=== PATIENT | female | born 1995 | race Caucasian/White ===

== ENCOUNTER 2020-03-19 01:57 | Emergency (ER) | payer OTHER ==
[~2020-03-19] VITALS: Ht 165.1 cm; Wt 104.3 kg
[~2020-03-19 01:57] MED LIST: ADVAIR 250-501 EACH IH; ALLEGRA ALLERG180 MG PO; CARISOPRODOL 3350 MG PO; IBUPROFEN 800800 M1 PO; NORCO 5-325 TA1 EACH PO; PROVENTIL; SINGULAIR 10 MG10 M1 PO
[2020-03-19] MEDS ORDERED: LAMICTAL100 MG PO (02:04)
[2020-03-19 02:41] LABS: ABSOLUTE NEUTROPHILS 4.5 thou/uL (1.4-8.2); BASOPHILS 0.5 % (0.0-2.0); EOSINOPHILS 2.4 % (0.0-3.0); HEMOGLOBIN 12.5 gm/dL (12.0-15.0); LYMPHOCYTES 36.7 % (24.0-44.0); MCH 28.6 pg (26.0-34.0); MCHC 33.7 g/dL (28.0-37.0); MCV 84.8 fL (80.0-100.0); PLATELET COUNT 272 thou/uL (150-400); POLYS 52.4 % (36.0-66.0); RBC 4.36 mil/uL (4.20-5.00); RDW 12.9 % (10.5-14.5); WBC 8.5 thou/uL (4.0-11.0)
[2020-03-19 03:02] LABS: ANION GAP 9 mmol/L (7-16); BUN 13 mg/dL (7-18); CALCIUM 8.6 mg/dL (8.5-10.1); CHLORIDE 103 mmol/L (98-107); CO2 27 mmol/L (21-32); CREATININE 0.9 mg/dL (0.6-1.0); GLUCOSE 99 mg/dL (74-106); POTASSIUM 3.7 mmol/L (3.5-5.1); SODIUM 139 mmol/L (136-145)
[2020-03-19 03:06] LABS: ALBUMIN 3.6 g/dL (3.4-5.0); LIPASE 117 U/L (73-393); SGOT 13 U/L (15-37); SGPT 23 U/L (30-65); TOTAL BILIRUBIN 0.3 mg/dL (0.2-1.0); TOTAL PROTEIN 7.3 g/dL (6.4-8.2)
[2020-03-19 03:07] LABS: DIRECT BILIRUBIN < 0.1 mg/dL (<0.1-0.2)
[2020-03-19 03:28] VITALS: BP 102/57
[2020-03-19 03:48] LABS: AMYLASE 48 U/L (25-115)
== END 2020-03-19 03:34 | disposition home or self-care (01) ==
LOC: ER 01:57
PROVIDERS: Emergency Medicine
DX: R07.89 Other chest pain (principal); J45.909 Unspecified asthma, uncomplicated; Z79.899 Other long term (current) drug therapy; Z88.0 Allergy status to penicillin